=== PATIENT | female | born 1995 | race Caucasian/White ===

== ENCOUNTER 2016-10-18 16:23 | Emergency (ER) | payer OTHER ==
[~2016-10-18] VITALS: Ht 154.9 cm; Wt 54.9 kg
[2016-10-18] MEDS ORDERED: TRAZODONE HCL50 M1 PO (17:02)
[2016-10-18] MEDS ORDERED: CITALOPRAM HBR10 MG PO (17:02)
--- NOTE | 2016-10-18 17:28 | ED ANKLE/FOOT INJURY COMPLAINT ---
History of Present Illness General Chief Complaint: Foot or Ankle Injury Stated Complaint: L SIDE OF FOOT PAIN, +XRAY Source: patient Exam Limitations: no limitations Vital Signs & Intake/Output Vital Signs & Intake/Output Vital Signs Date Time Temp Pulse Resp B/P Pulse O2 O2 Flow FiO2 Ox Delivery Rate 10/18 1627 97.8 78 18 147/88 98 Room Air Allergies Coded Allergies: No Known Allergies (10/18/16) Reconcile Medications Citalopram Hydrobromide (Citalopram HBr) 10 MG TABLET 1 TAB PO DAILY DEPRESSION (Reported) Trazodone HCl 50 MG TABLET 1 TAB PO QPM SLEEP (Reported) Triage Note: PT STATES THAT SHE WAS AT [employer] SUNDAY IN [place] AND THAT NIGHT HER L FOOT STARTED TO BOTHER HER. PT HAD OUT PT XRAY TODAY AT [facility] AND WAS SENT OVER TO ER. Triage Nurses Notes Reviewed? yes : No Patient currently breastfeeds: No HPI: this patient is a 21-year-old female who presented to the emergency department today sent in by her primary care physician for evaluation of left foot injury. The patient reported that she was at a [employer] tournament on Sunday in [place] and hurt her left foot. She reported that the pain is up to 3 out of 10 and she has been ambulating without difficulty. She had an x-ray done today which shows a break in her left foot. She has been taking Motrin for the pain. Back. She denies any ankle pain. No numbness or tingling. (HODAN CM PA-C) Past History Travel History Traveled to [place] past 21 day No Medical History Any Pertinent Medical History? see below for history Neurological: NONE EENT: NONE Cardiovascular: NONE Respiratory: NONE Gastrointestinal: NONE Hepatic: NONE Renal: NONE Musculoskeletal: NONE Psychiatric: NONE Endocrine: NONE Blood Disorders: NONE Cancer(s): NONE HIGHWAY PATROL PILOT/Reproductive: NONE Surgical History Surgical History: non-contributory Psychosocial History What is your primary language Turkmen Tobacco Use: Never used ETOH Use: denies use Illicit Drug Use: denies illicit drug use Family History Hx Contributory? No (HODAN CM PA-C) Review of Systems Review of Systems Constitutional: Reports: no symptoms. EENTM: Reports: no symptoms. Respiratory: Reports: no symptoms. Cardiovascular: Reports: no symptoms. GI: Reports: no symptoms. Musculoskeletal: Reports: see HPI. Skin: Reports: no symptoms. Neurological/Psychological: Reports: no symptoms. All Other Systems: Reviewed and Negative (HODAN CM PA-C) Physical Exam Physical Exam Leg/Knee/Thigh Left: normal range of motion, normal inspection Comments: Well-developed well-nourished person in no acute distress HEENT: Head normocephalic/atraumatic Neck: Supple, no lymphadenopathy Back: Antalgic gait Respiratory: No respiratory distress. Speaking in full sentences Left foot: No overlying erythema or edema. Limited range of motion of the fourth and fifth digits. Tenderness to palpation over the lateral, dorsal aspect of the foot. Dorsalis pedis and posterior tibialis pulses 2+ and strong. Capillary refill less than 2 seconds Neuro: Alert and oriented x3 Psych: Mood affect normal, normal memory normal judgment. Skin: Warm and dry, no rash on exposed skin. Ecchymosis to the dorsum of the left foot (HODAN CM PA-C) Progress Differential Diagnosis: arterial insufficiency, cellulitis, septic arthritis, fracture, dislocation, sprain, contusion, compartmental syndrome Plan of Care: Orders Procedure Date/time Status Durable Medical Equipment 10/18 1721 Active Departure Departure Disposition: HOME OR SELF CARE Condition: Stable Clinical Impression Primary Impression: Fracture of fifth metatarsal bone Qualifiers: Encounter type: initial encounter Fracture type: closed Fracture alignment: displaced Laterality: left Qualified Code: S92.352A - Displaced fracture of fifth metatarsal bone, left foot, initial encounter for closed fracture Referrals: KINGSTON MONIQUE,NITISH SIMON (PCP/Family) Additional Instructions: Remain nonweightbearing until you follow up with the orthopedic physician whose information has been provided to this packet; please call the orthopedist to schedule follow-up appointment. Take previously prescribed ibuprofen for pain and inflammation. Apply ice to the affected area. Use the walking boot provided to here in the emergency department as well as the crutches. Departure Forms: Customer Survey General Discharge Information (HODAN CM PA-C) PA/STERILE SUPPLY TECHNICIAN Co-Sign Statement Statement: ED Attending supervision documentation- [] I saw and evaluated the patient. I have also reviewed all the pertinent lab results and diagnostic results. I agree with the findings and the plan of care as documented in the PA's/STERILE SUPPLY TECHNICIAN's documentation. [X] I have reviewed the ED Record and agree with the PA's/STERILE SUPPLY TECHNICIAN's documentation. [] Additions or exceptions (if any) to the PAs/STERILE SUPPLY TECHNICIAN's note and plan are summarized below: [] (MER MONIQUE,SHILA)
[2016-10-18 17:39] VITALS: BP 115/70
== END 2016-10-18 17:34 ==
LOC: ERH 16:23
DX: S92.352A Displaced fracture of fifth metatarsal bone, left foot, initial encounter for closed fracture (principal); X58.XXXA Exposure to other specified factors, initial encounter; Y93.53 Activity, golf; Y92.39 Other specified sports and athletic area as the place of occurrence of the external cause